=== PATIENT | male | born 1965 | race Caucasian/White ===

== ENCOUNTER 2023-03-31 12:26 | Outpatient (NON) | payer OTHER, SELFPAY | END 2023-03-31 12:27 | disposition home or self-care (01) | PROVIDERS: PCP Family Medicine; Visit Provider Nurse Practitioner | DX: D18.00 Hemangioma unspecified site (principal) | CPT/HCPCS: 88305 ==

== ENCOUNTER 2023-04-01 15:46 | Outpatient (CLI) | payer OTHER, SELFPAY ==
--- NOTE | ~2023-04-01 | XR_ITS ---
EXAM: XR lumbar spine 2-3V DATE: 04/01/2023 16:05 HISTORY: Lumbago, numbness down both legs, no injury . COMPARISON: None available. FINDINGS: Mild lumbar scoliosis. 5 nonrib-bearing lumbar-type vertebral bodies. Pedicles intact. Norm al vertebral body alignment. Vertebral body heights preserved. Multilevel mild anterior wedge deformi ty at the thoracolumbar junction, typically to be related to physiologic change. Multilevel moderate disc space narrowing and marginal osteophytosis. Multilevel moderate mid and lower lumbar facet scler osis and hypertrophy. No fracture or dislocation. Scattered vascular calcifications. IMPRESSION: Multilevel moderate lumbar degenerative disc disease. Multilevel moderate mid and lower l umbar facet arthropathy. Reviewed, dictated and finalized at location K. IMPRESSION: Multilevel moderate lumbar degenerative disc disease. Multilevel mo derate mid and lower lumbar facet arthropathy.
== END 2023-04-01 15:47 | disposition home or self-care (01) ==
LOC: ANHIMG 15:48
PROVIDERS: PCP Family Medicine; Visit Provider Family Medicine
DX: M54.16 Radiculopathy, lumbar region (principal); M51.36 Other intervertebral disc degeneration, lumbar region
CPT/HCPCS: 72100

== ENCOUNTER 2023-06-23 06:51 | Day surgery (SDC) | payer OTHER, SELFPAY ==
[2023-06-04 09:23] VITALS: BMI 28.0
--- NOTE | 2023-06-20 13:18 | PM.HPGS ---
History of Present Illness History of Present Illness Consent: Risks, benefits, and alternatives have been discussed and questions answered. Patient agrees to proceed with procedure. 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 He had a screening colonoscopy about 5 years ago which was unremarkable. Recently while on vacation in [place] he had developed symptoms of to come to the emergency room.? The did not find anything and released him.? Two days later when he was traveling in [place] he went to another hospital with his same complaints and was admitted.? He was found on CT to have inflammation of the terminal ileum.? This was confirmed a small bowel series. Review of Systems Review of Systems: All systems reviewed & are unremarkable except as noted in HPI and below PMFSH Past Medical History Medical History Crohn's disease Essential (primary) hypertension Glaucoma Pure hypercholesterolemia Surgical History Surgical History History of meniscectomy of left knee Status post arthroscopy of right knee Status post tonsillectomy Family History Family History Father Hypertension Family history of diabetes mellitus in first degree relative Family history of coronary artery disease Mother Hypertension Social History Social History Smoking status: Never smoker Second hand tobacco smoke exposure: No Alcohol intake: current Drinks per week: 2 Substance use: never Substance use type: does not use Living arrangements: with family Occupation/Education: occupation Gender identity (if verbalized by the patient): Male Spiritual care concerns: No Meds Home Medications and Allergies Home Medications Medication Instructions Recorded Confirmed Type latanoprost 0.005 % eye drops 1 drop ophthalmic (eye) DAILY 07/19/19 06/23/23 History brimonidine 0.15 % eye drops 1 drp ophthalmic (eye) BID #15 mL 01/23/22 06/23/23 Rx atorvastatin 20 mg tablet See Rx Instructions .Route 07/15/22 06/23/23 Rx .COMPLEX #90 ea omeprazole 40 mg capsule,delayed 40 mg PO DAILY #90 caps 10/08/22 06/23/23 Rx release losartan 100 mg tablet 100 mg PO DAILY #90 tabs 06/10/23 06/23/23 Rx meloxicam 15 mg tablet See Rx Instructions .Route 06/16/23 06/23/23 Rx .COMPLEX #90 tabs Allergies Allergy/AdvReac Type Severity Reaction Status Date / Time No Known Allergies Allergy Verified 06/23/23 07:37 Exam Const: General: alert Orientation/consciousness: patient oriented x3 Resp: Auscultation: clear to auscultation bilaterally Cardio: Rhythm: regular rhythm GI: GI Palp: Yes Soft to palpation and No Tenderness to palpation present (GI) Neuro: General: patient oriented x3 Assessment and Plan Assessment and plan (1) Crohn's disease: Code(s): K50.90 - Crohn's disease, unspecified, without complications Status: Acute Assessment and Plan: Colonoscopy with possible biopsy or polypectomy or cautery or injection of substances.
--- NOTE | 2023-06-23 07:10 | P.PNAN_ITS ---
Anes - Initial Pre Proc Eval Procedure: Operation Date: 06/23/23 09:00 Proposed Procedures p Colonoscopy - Aguilar Conner MD Date/Time: 06/23/23 07:10 Surgeon: Aguilar Conner MD Pre Op Diagnosis: Crohns Disease without complications Patient Data Age: 57 Gender: M Height: 1.75 m Weight: 86 kg Allergies Allergy/AdvReac Type Severity Reaction Status Date / Time No Known Allergies Allergy Verified 06/23/23 07:37 Home Medications Medication Instructions Recorded Confirmed Type latanoprost 0.005 % eye drops 1 drop ophthalmic (eye) DAILY 07/19/19 06/23/23 History brimonidine 0.15 % eye drops 1 drp ophthalmic (eye) BID #15 mL 01/23/22 06/23/23 Rx atorvastatin 20 mg tablet See Rx Instructions .Route 07/15/22 06/23/23 Rx .COMPLEX #90 ea omeprazole 40 mg capsule,delayed 40 mg PO DAILY #90 caps 10/08/22 06/23/23 Rx release losartan 100 mg tablet 100 mg PO DAILY #90 tabs 06/10/23 06/23/23 Rx meloxicam 15 mg tablet See Rx Instructions .Route 06/16/23 06/23/23 Rx .COMPLEX #90 tabs Patient hx anesthesia problems: none Family hx anesthesia problems: none Results Review: All pre-operative results and documents have been reviewed as part of the pre- operative evaluation. [facility] Past Medical History Medical History (Updated 06/23/23 @ 07:10 by Isaac Robledo DO) Crohn's disease Essential (primary) hypertension Glaucoma Pure hypercholesterolemia Surgical History Surgical History History of meniscectomy of left knee Status post arthroscopy of right knee Status post tonsillectomy Family History Family History Father Hypertension Family history of diabetes mellitus in first degree relative Family history of coronary artery disease Mother Hypertension Social History Social History Smoking status: Never smoker Second hand tobacco smoke exposure: No Alcohol intake: current Drinks per week: 2 Substance use: never Substance use type: does not use Living arrangements: with family Occupation/Education: occupation Gender identity (if verbalized by the patient): Male Spiritual care concerns: No Anes - Eval Final PreProcedure Day of Procedure 06/23/23 07:10 Patient weight: overweight Heart: regular rate and rhythm Lungs: clear to auscultation Airway: Mallampati scale class II Neurological: alert and oriented Last oral intake: >/= 8 hours ASA classification: III Emergent: no Anesthetic plan: proceed Anesthesia type and monitoring: general GIVS and standard monitoring Results Review: All pre-operative results and documents have been reviewed as part of the pre- operative evaluation. Informed Consent: The patient's anesthetic plan and its attendant risks and benefits were discussed with the patient/family/POA. Questions were solicited and answers provided to the satisfaction of the patient/family/POA.
[2023-06-23 07:46] VITALS: BP 129/85; PULSE 74; RESP 16; TEMP 36.8; O2SAT 95
[2023-06-23] MEDS: LACTATED RINGERS 1,000 ML 150 ML IV CONT (07:53)
[2023-06-23 08:58] VITALS: BP 100/57; PULSE 75; RESP 16; O2SAT 95
[2023-06-23 09:08] VITALS: BP 110/74; PULSE 70; RESP 18; O2SAT 98
[2023-06-23 09:18] VITALS: BP 112/76; PULSE 72; RESP 20; O2SAT 98
--- NOTE | 2023-06-23 10:35 | SUR.PHASEII ---
pt spend the remaining time in outpatient holding waiting for his ride/ dc'd at 1035 to home w/significant other
--- NOTE | 2023-06-23 13:46 | WPDANESPN ---
Anes - Prog Note Post-Op Date/Time: 06/23/23 13:46 Cardiovascular status: normal Respiratory status: normal Airway patency: baseline Mental status: baseline Post-Op hydration status: normal Vital Signs: Last Vital Signs Temp 36.8 C 06/23/23 07:46 Pulse 72 06/23/23 09:18 Resp 20 06/23/23 09:18 BP 112/76 06/23/23 09:18 Pulse Ox 98 06/23/23 09:18 O2 Del Method Room Air 06/23/23 09:18 Pain Score (VAS): 0 I/O: Intake & Output 06/22/23 06/23/23 06/23/23 23:59 07:59 15:59 Intake Total 400 Balance 400 Post-procedural complaints: none Patient Feedback: Patient satisfied with anesthetic care. Other Findings: Patient vital signs back to baseline. Patient denies nausea and vomiting. Patient's pain under control. Patient OK for discharge.
== END 2023-06-23 10:35 | disposition home or self-care (01) ==
PROVIDERS: PCP Family Medicine; Visit Provider Internal Medicine Gastroenterology
PROC: 0DJD8ZZ Inspection of Lower Intestinal Tract, Via Natural or Artificial Opening Endoscopic (ICD-10-PCS; CPT 45378; principal; 2023-06-23 09:00)
DX: K50.90 Crohn's disease, unspecified, without complications (principal); K57.30 Diverticulosis of large intestine without perforation or abscess without bleeding
CPT/HCPCS: 45378

== ENCOUNTER 2023-11-10 06:05 | Outpatient (CLI) | payer OTHER, SELFPAY ==
--- NOTE | 2023-11-10 06:34 | SUR.OPER ---
LOT [id number] 01-21-24
== END 2023-11-10 06:32 | disposition home or self-care (01) ==
PROVIDERS: PCP Family Medicine; Visit Provider Internal Medicine Gastroenterology
PROC: 0DJ07ZZ Inspection of Upper Intestinal Tract, Via Natural or Artificial Opening (ICD-10-PCS; CPT 91110; principal; 2023-11-10 07:00)
DX: K50.90 Crohn's disease, unspecified, without complications (principal); Z87.19 Personal history of other diseases of the digestive system; Z01.818 Encounter for other preprocedural examination
CPT/HCPCS: 91110

== ENCOUNTER 2023-11-11 11:04 | Outpatient (CLI) | payer OTHER, SELFPAY ==
--- NOTE | ~2023-11-11 | XR_ITS ---
XR abdomen/kub 1V 11/11/2023 11:26 INDICATION: Check small bowel for patency capsule. TECHNIQUE: KUB COMPARISON: None FINDINGS: Bowel gas pattern is normal. Moderate colonic fecal loading. Radiopaque capsule identified in the left upper abdomen, presumably colon. There is no evidence of free air, mass, organomegaly, as cites or obstruction. No abnormal calculi are seen. The bones appear intact. IMPRESSION: 1: Radiopaque capsule identified left upper abdomen, presumably colon. Reviewed, dictated and finalized at location L.
== END 2023-11-11 11:05 | disposition home or self-care (01) ==
PROVIDERS: PCP Family Medicine; Visit Provider Internal Medicine Gastroenterology
DX: K50.90 Crohn's disease, unspecified, without complications (principal); Z87.19 Personal history of other diseases of the digestive system
CPT/HCPCS: 74018

== ENCOUNTER 2023-11-12 10:14 | Outpatient (CLI) | payer OTHER, SELFPAY ==
--- NOTE | ~2023-11-12 | XR_ITS ---
EXAMINATION: XR abdomen/kub 1V DATE: 11/12/2023 10:45 INDICATION: Personal history of other diseases of the digestive system. TECHNIQUE: A supine view of the abdomen on 2 radiographs was obtained. COMPARISON: Abdomen radiographs 11/11/2023 FINDINGS: There are no dilated loops of bowel. There is a small volume of stool in the colon. IMPRESSION: 1. Normal bowel gas pattern. 2. The radiopaque capsule is no longer present. Reviewed, dictated and finalized at location A.
== END 2023-11-12 10:15 | disposition home or self-care (01) ==
PROVIDERS: PCP Family Medicine; Visit Provider Internal Medicine Gastroenterology
DX: K50.90 Crohn's disease, unspecified, without complications (principal); Z87.19 Personal history of other diseases of the digestive system
CPT/HCPCS: 74018

== ENCOUNTER 2023-11-13 05:21 | Outpatient (CLI) | payer OTHER, SELFPAY ==
--- NOTE | 2023-11-13 06:59 | SUR.OPER ---
Patient brought to GI Lab. Instructions for patient undergoing Capsule Endoscopy reviewed with patient. Consent form signed. Sensor array applied to patient's abdomen and connected to recorded. Patient swallowed capsule with 2 cups of water infused with Simethicone. Patient instructed they may have clear liquids at 0830 this AM and eat or drink at 1030 this AM. Patient instructed to return to GI Lab at 1500 this afternoon for removal of recording device and to call [phone] or to return to the hospital if any nausea and vomiting or abdominal pain is experienced.
== END 2023-11-13 05:22 | disposition home or self-care (01) ==
PROVIDERS: PCP Family Medicine; Visit Provider Internal Medicine Gastroenterology
PROC: 0DJ07ZZ Inspection of Upper Intestinal Tract, Via Natural or Artificial Opening (ICD-10-PCS; CPT 91110; principal; 2023-11-13 07:00)
DX: Z01.818 Encounter for other preprocedural examination (principal); K50.90 Crohn's disease, unspecified, without complications; Z87.19 Personal history of other diseases of the digestive system
CPT/HCPCS: 91110

== ENCOUNTER 2023-12-29 08:14 | Outpatient (CLI) | payer OTHER, SELFPAY ==
--- NOTE | ~2023-12-29 | XR_ITS ---
EXAMINATION: XR small bowel follow through DATE: 12/29/2023 13:06 INDICATION: History of other diseases of the digestive system. TECHNIQUE: Oral contrast was administered, and a time course of radiographs of the abdomen was obtain ed. Fluoroscopy of the small bowel was performed. Fluoroscopy exposure time was 0.1 minutes. The tota l number of images was 16. COMPARISON: None. FINDINGS: There are no dilated loops of bowel. There is no abnormal mass or stricture. The terminal ileum is no rmal. Transit time from the stomach to proximal colon was approximately 3 hours 30 minutes. IMPRESSION: 1. Normal small bowel series. Reviewed, dictated and finalized at location A.
== END 2023-12-29 08:15 | disposition home or self-care (01) ==
LOC: ANHIMG 08:17
PROVIDERS: PCP Family Medicine; Visit Provider Internal Medicine Gastroenterology
DX: K50.90 Crohn's disease, unspecified, without complications (principal); Z87.19 Personal history of other diseases of the digestive system
CPT/HCPCS: 74250